=== PATIENT | male | born 1995 | race African-American/Black ===

== ENCOUNTER 2017-10-30 02:15 | Emergency (ER) | payer SELFPAY ==
[~2017-10-30] VITALS: Ht 190.5 cm; Wt 94.6 kg
[2017-10-30 02:51] LABS: BASOPHIL (%) 0.3 % (0-1); EOSINOPHIL (%) 0.6 % (0-5); HEMATOCRIT 38.3 % (38.0-50.0); HEMOGLOBIN 12.3 G/DL (12.5-16.6); IMMATURE GRANULOCYTE (%) 0.3 % (0.0-0.7); LYMPHOCYTE (%) 29.2 % (15-42); LYMPHOCYTE COUNT 1.1 K/uL (1.0-2.8); MCH 24.3 PG (29.0-34.0); MCHC 32.1 G/DL (30.0-36.0); MCV 75.7 FL (86-99); MONOCYTE (%) 3.6 % (3-12); MONOCYTE COUNT 0.1 K/uL (0-0.8); NEUTROPHIL COUNT 2.4 K/uL (1.8-6.4); PLATELET COUNT 72 K/uL (156-360); RBC DIS.WIDTH-CV 18.3 % (11.8-14.6); RBC DIS.WIDTH-SD 50.2 % (39-53); RED BLOOD COUNT 5.06 M/uL (4.00-5.50); WHITE BLOOD COUNT 3.6 K/uL (4.1-10.2)
[2017-10-30 02:59] LABS: ALBUMIN 4.8 g/dL (3.2-4.8); CHLORIDE 105 mEq/L (99-109); POTASSIUM 3.5 mEq/L (3.7-5.4); SODIUM 139 mEq/L (136-147)
[2017-10-30 03:01] LABS: GLUCOSE 96 mg/dL (70-99); TOTAL PROTEIN 8.2 g/dL (6.4-8.3)
[2017-10-30 03:03] LABS: TOTAL BILIRUBIN 0.6 mg/dL (0.0-1.0)
[2017-10-30 03:05] LABS: ALKALINE PHOSPHATASE 50 IU/L (3-129); CREATININE 0.8 mg/dL (0.6-1.3); GFR ESTIMATE (CALCULATED) > 59 mL/min/ (58.99-99999)
[2017-10-30 03:06] LABS: UREA NITROGEN (BUN) 11 mg/dL (9-23)
[2017-10-30 03:07] LABS: AST (GOT) 15 IU/L (2-34)
[2017-10-30 03:08] LABS: ALT (GPT) 6 IU/L (3-49); LIPASE 38 U/L (1.0-51.0)
[2017-10-30] MEDS ORDERED: ZOFRAN4 MG PO (03:59)
[2017-10-30] MEDS ORDERED: PERCOCET 5/31 TABLET PO (03:59)
[2017-10-30 04:10] VITALS: BP 148/99
== END 2017-10-30 04:10 | disposition home or self-care (01) ==
LOC: EME 02:15
PROVIDERS: Emergency Medicine
DX: R10.13 Epigastric pain (principal); R11.2 Nausea with vomiting, unspecified
CPT/HCPCS: 80053; 83690; 85025; 99281; 99284

== ENCOUNTER 2017-11-16 13:15 | Emergency (ER) | payer SELFPAY ==
[~2017-11-16] VITALS: Ht 190.5 cm; Wt 95.6 kg
[~2017-11-16 13:15] MED LIST: PERCOCET 5/31 TABLET PO; ZOFRAN4 MG PO
[2017-11-16 14:39] LABS: BASOPHIL (%) 0.2 % (0-1); EOSINOPHIL (%) 0 % (0-5); HEMATOCRIT 39.4 % (38.0-50.0); HEMOGLOBIN 12.4 G/DL (12.5-16.6); IMMATURE GRANULOCYTE (%) 0.3 % (0.0-0.7); LYMPHOCYTE (%) 12.3 % (15-42); LYMPHOCYTE COUNT 0.8 K/uL (1.0-2.8); MCHC 31.5 G/DL (30.0-36.0); MCV 76.2 FL (86-99); MONOCYTE (%) 2.6 % (3-12); MONOCYTE COUNT 0.2 K/uL (0-0.8); NEUTROPHIL (%) 84.6 % (45-76); NEUTROPHIL COUNT 5.6 K/uL (1.8-6.4); RBC DIS.WIDTH-CV 17.7 % (11.8-14.6); RBC DIS.WIDTH-SD 49.1 % (39-53); RED BLOOD COUNT 5.17 M/uL (4.00-5.50); WHITE BLOOD COUNT 6.6 K/uL (4.1-10.2)
[2017-11-16 14:52] LABS: PLATELET COUNT 120 K/uL (156-360)
[2017-11-16 15:04] LABS: ALBUMIN 4.7 G/DL (3.2-4.8); CHLORIDE 105 MEQ/L (99-109); POTASSIUM 4.2 MEQ/L (3.7-5.4); SODIUM 138 MEQ/L (136-147); TOTAL BILIRUBIN 0.4 MG/DL (0.0-1.0)
[2017-11-16 15:09] LABS: ALKALINE PHOSPHATASE 42 IU/L (3-129); ALT (GPT) 8 IU/L (3-49); AST (GOT) 17 IU/L (2-34); CREATININE 0.8 MG/DL (0.6-1.3); GFR ESTIMATE (CALCULATED) > 59 mL/min/ (58.99-99999); GLUCOSE 100 mg/dL (70-99); LIPASE 48 U/L (1.0-51.0); UREA NITROGEN (BUN) 14 mg/dL (9-23)
[2017-11-16 17:53] VITALS: BP 120/80
== END 2017-11-16 17:56 | disposition home or self-care (01) ==
LOC: EME 13:15
PROVIDERS: Emergency Medicine
DX: K86.3 Pseudocyst of pancreas (principal); E78.5 Hyperlipidemia, unspecified
CPT/HCPCS: 74177; 80053; 81003; 83690; 85025; 99281; 99284; J2405; J3010; J7030

== ENCOUNTER 2017-11-27 14:08 | Emergency (ER) | payer SELFPAY ==
[~2017-11-27] VITALS: Ht 190.5 cm; Wt 99.1 kg
[2017-11-27 14:54] LABS: BASOPHIL (%) 0.2 % (0-1); EOSINOPHIL (%) 0.2 % (0-5); HEMATOCRIT 35.8 % (38.0-50.0); HEMOGLOBIN 11.4 G/DL (12.5-16.6); IMMATURE GRANULOCYTE (%) 0.2 % (0.0-0.7); LYMPHOCYTE (%) 18.4 % (15-42); LYMPHOCYTE COUNT 1.1 K/uL (1.0-2.8); MCH 24.6 PG (29.0-34.0); MCHC 31.8 G/DL (30.0-36.0); MCV 77.3 FL (86-99); MONOCYTE COUNT 0.2 K/uL (0-0.8); NEUTROPHIL COUNT 4.4 K/uL (1.8-6.4); PLATELET COUNT 92 K/uL (156-360); RBC DIS.WIDTH-CV 17.9 % (11.8-14.6); RED BLOOD COUNT 4.63 M/uL (4.00-5.50); WHITE BLOOD COUNT 5.7 K/uL (4.1-10.2)
[2017-11-27 15:03] LABS: ALBUMIN 4.6 g/dL (3.2-4.8)
[2017-11-27 15:04] LABS: CHLORIDE 106 mEq/L (99-109); POTASSIUM 3.9 mEq/L (3.7-5.4); SODIUM 142 mEq/L (136-147)
[2017-11-27 15:06] LABS: GLUCOSE 101 mg/dL (70-99); TOTAL PROTEIN 7.8 g/dL (6.4-8.3)
[2017-11-27 15:08] LABS: TOTAL BILIRUBIN 0.5 mg/dL (0.0-1.0)
[2017-11-27 15:09] LABS: ALKALINE PHOSPHATASE 46 IU/L (3-129)
[2017-11-27 15:10] LABS: CREATININE 0.8 mg/dL (0.6-1.3); GFR ESTIMATE (CALCULATED) > 59 mL/min/ (58.99-99999)
[2017-11-27 15:11] LABS: AST (GOT) 13 IU/L (2-34); UREA NITROGEN (BUN) 13 mg/dL (9-23)
[2017-11-27 15:13] LABS: ALT (GPT) 7 IU/L (3-49); LIPASE 32 U/L (1.0-51.0)
[2017-11-27] MEDS ORDERED: ZOFRAN ODT4 MG PO (17:23)
[2017-11-27] MEDS ORDERED: PERCOCET 5/31 TABLET PO (17:23)
[2017-11-27 17:32] VITALS: BP 126/85
== END 2017-11-27 17:36 | disposition home or self-care (01) ==
LOC: EME 14:08
PROVIDERS: Emergency Medicine
DX: K86.3 Pseudocyst of pancreas (principal); R11.2 Nausea with vomiting, unspecified; R07.9 Chest pain, unspecified; R06.02 Shortness of breath
CPT/HCPCS: 74177; 80053; 81003; 83605; 83690; 85025; 99281; 99285; J2405; J7120

== ENCOUNTER 2018-01-25 02:43 | Emergency (ER) | payer SELFPAY ==
[~2018-01-25] VITALS: Ht 190.5 cm; Wt 93.9 kg
[~2018-01-25 02:43] MED LIST changes: +ZOFRAN ODT4 MG PO
[2018-01-25] MEDS ORDERED: MOTRIN800 MG PO (04:28)
[2018-01-25 05:06] VITALS: BP 00/00
== END 2018-01-25 05:07 | disposition home or self-care (01) ==
LOC: EME 02:43
DX: S93.402A Sprain of unspecified ligament of left ankle, initial encounter (principal); S93.602A Unspecified sprain of left foot, initial encounter; X50.0XXA Overexertion from strenuous movement or load, initial encounter; Y93.67 Activity, basketball
CPT/HCPCS: 73610; 73630; 99281; 99284

== ENCOUNTER 2018-03-15 01:06 | Inpatient (IN) | payer SELFPAY ==
[~2018-03-15] VITALS: Ht 190.5 cm; Wt 95.1 kg
[~2018-03-15 01:06] MED LIST changes: +MOTRIN800 MG PO
[2018-03-15 02:04] LABS: BASOPHIL (%) 0 % (0-1); EOSINOPHIL (%) 0.4 % (0-5); HEMATOCRIT 35.9 % (38.0-50.0); HEMOGLOBIN 11.3 G/DL (12.5-16.6); IMMATURE GRANULOCYTE (%) 0.2 % (0.0-0.7); LYMPHOCYTE (%) 21.5 % (15-42); MCH 25.2 PG (29.0-34.0); MCHC 31.5 G/DL (30.0-36.0); MONOCYTE (%) 4.5 % (3-12); MONOCYTE COUNT 0.2 K/uL (0-0.8); NEUTROPHIL (%) 73.4 % (45-76); NEUTROPHIL COUNT 3.4 K/uL (1.8-6.4); PLATELET COUNT 79 K/uL (156-360); RBC DIS.WIDTH-CV 18.2 % (11.8-14.6); RBC DIS.WIDTH-SD 52.8 % (39-53); RED BLOOD COUNT 4.49 M/uL (4.00-5.50); WHITE BLOOD COUNT 4.7 K/uL (4.1-10.2)
[2018-03-15 02:12] LABS: ALBUMIN 4.4 g/dL (3.2-4.8); CHLORIDE 107 mEq/L (99-109); POTASSIUM 4.1 mEq/L (3.7-5.4); SODIUM 143 mEq/L (136-147)
[2018-03-15 02:14] LABS: GLUCOSE 105 mg/dL (70-99)
[2018-03-15 02:15] LABS: TOTAL PROTEIN 7.2 g/dL (6.4-8.3)
[2018-03-15 02:16] LABS: TOTAL BILIRUBIN 0.4 mg/dL (0.0-1.0)
[2018-03-15 02:18] LABS: ALKALINE PHOSPHATASE 43 IU/L (3-129); GFR ESTIMATE (CALCULATED) > 59 mL/min/ (58.99-99999)
[2018-03-15 02:19] LABS: UREA NITROGEN (BUN) 10 mg/dL (9-23)
[2018-03-15 02:20] LABS: AST (GOT) 15 IU/L (2-34)
[2018-03-15 02:21] LABS: ALT (GPT) 9 IU/L (3-49)
[2018-03-15 03:52] LABS: LIPASE 105 U/L (1.0-51.0)
[2018-03-15 04:51] VITALS: BP 142/85
[2018-03-15 11:18] VITALS: BP 138/75
[2018-03-15 11:50] LABS: HDL CHOLESTEROL 38 MG/DL (Desirable>=40); LDL CHOLESTEROL 75 mg/dL (Desirable<100); NON-HDL CHOLESTEROL 85 mg/dL (Desirable<160); TOTAL CHOLESTEROL 123 mg/dL (Desirable<200); TRIGLYCERIDES 51 MG/DL (Normal: <150)
[2018-03-15 15:15] VITALS: BP 124/67
[2018-03-15 19:10] VITALS: BP 141/86
== END 2018-03-15 19:51 | disposition left against medical advice (07) | DRG 439 ==
LOC: EME → EDBD 01:06 → EME 01:06 → EDOF 03:45 → ENRESERV 03:48 → 5SOUTH 04:27
PROVIDERS: Emergency Medicine; Family Medicine
DX: K85.90 Acute pancreatitis without necrosis or infection, unspecified (principal); K86.3 Pseudocyst of pancreas; E78.1 Pure hyperglyceridemia; I86.8 Varicose veins of other specified sites; R16.2 Hepatomegaly with splenomegaly, not elsewhere classified
CPT/HCPCS: 74177; 76705; 80053; 80061; 81003; 83690; 85025; 99281; 99285; J1200; J1650; J1885; J2270; J2405; J3010; J7030

== ENCOUNTER 2018-03-17 19:28 | Observation (INO) | payer SELFPAY ==
[~2018-03-17] VITALS: Ht 190.5 cm; Wt 93.0 kg
[2018-03-17 19:50] LABS: HEMATOCRIT 36.6 % (38.0-50.0); HEMOGLOBIN 11.5 G/DL (12.5-16.6); MCH 24.8 PG (29.0-34.0); MCHC 31.4 G/DL (30.0-36.0); PLATELET COUNT 87 K/uL (156-360); RBC DIS.WIDTH-CV 18.1 % (11.8-14.6); RED BLOOD COUNT 4.63 M/uL (4.00-5.50); WHITE BLOOD COUNT 3.6 K/uL (4.1-10.2)
[2018-03-17 20:01] LABS: ALBUMIN 4.4 g/dL (3.2-4.8)
[2018-03-17 20:02] LABS: CHLORIDE 108 mEq/L (99-109); SODIUM 141 mEq/L (136-147)
[2018-03-17 20:04] LABS: GLUCOSE 95 mg/dL (70-99); TOTAL PROTEIN 7.5 g/dL (6.4-8.3)
[2018-03-17 20:07] LABS: ALKALINE PHOSPHATASE 45 IU/L (3-129); TOTAL BILIRUBIN 0.5 mg/dL (0.0-1.0)
[2018-03-17 20:08] LABS: CREATININE 0.8 mg/dL (0.6-1.3); GFR ESTIMATE (CALCULATED) > 59 mL/min/ (58.99-99999)
[2018-03-17 20:09] LABS: AST (GOT) 15 IU/L (2-34); UREA NITROGEN (BUN) 8 mg/dL (9-23)
[2018-03-17 20:10] LABS: ALT (GPT) 9 IU/L (3-49)
[2018-03-17 20:36] LABS: BASOPHIL (%) 0.3 % (0-1); EOSINOPHIL (%) 0.5 % (0-5); IMMATURE GRANULOCYTE (%) 0.5 % (0.0-0.7); LYMPHOCYTE (%) 25.5 % (15-42); LYMPHOCYTE COUNT 0.9 K/uL (1.0-2.8); MONOCYTE (%) 4.1 % (3-12); MONOCYTE COUNT 0.2 K/uL (0-0.8); NEUTROPHIL (%) 69.1 % (45-76); NEUTROPHIL COUNT 2.5 K/uL (1.8-6.4)
[2018-03-17 21:56] LABS: LIPASE 35 U/L (1.0-51.0)
[2018-03-18 03:36] LABS: APPEARANCE CLEAR ((CLEAR)); BILIRUBIN NEGATIVE; BLOOD NEGATIVE; COLOR STRAW ((YELLOW)); GLUCOSE (STRIP) NEGATIVE; KETONES NEGATIVE; LEUKOCYTES NEGATIVE; NITRITE NEGATIVE; PROTEIN (STRIP) NEGATIVE; UCUL ADDED? NO; UROBILINOGEN 0.2 MG/DL (0.2-1.0)
[2018-03-18 11:58] VITALS: BP 126/76
[2018-03-18 13:55] VITALS: BP 148/94
== END 2018-03-18 17:10 | disposition left against medical advice (07) ==
LOC: EME 19:28 → EDOF 03-18 03:00 → ENRESERV 03-18 03:02 → 4SOUTH 03-18 11:44
DX: K85.90 Acute pancreatitis without necrosis or infection, unspecified (principal); K86.1 Other chronic pancreatitis; K86.3 Pseudocyst of pancreas; E78.1 Pure hyperglyceridemia
CPT/HCPCS: 74177; 80053; 81003; 83690; 85025; 85027; 99281; 99285; G0378; J1644; J1885; J2270; J2405; J2550; J3010; J7030